=== PATIENT | male | born 1985 | race Caucasian/White ===

== ENCOUNTER 2024-10-14 00:05 | Emergency (ER) | payer OTHER, SELFPAY ==
[2024-10-14 00:08] VITALS: BP 142/89
--- NOTE | 2024-10-14 00:49 | ED.GENMED ---
History of Present Illness
General
Chief Complaint: Fall
Source: patient, spouse and previous radiology exam (Fracture base of fifth metatarsal right foot May 2010. Right fourth metacarpal fracture 2012)
Exam Limitations: none
Time Seen by Provider: 10/14/24 00:34
Nursing documentation reviewed up to this point in time: agreed with
History of Present Illness
History of Present Illness:
This is a 39-year-old morbidly obese gentleman with history of hidradenitis suppurativa, bullous pemphigoid who states he intermittently slipped at the top of the steps subsequently sliding/falling down approximately 12 uncarpeted steps at home
injuring his right shoulder, right hip, right foot. He denies head injury nor loss of consciousness. Fall occurred around 11:30 PM. He has been ambulatory since fall and arrives with his via private automobile.
He complains of significant pain right shoulder with inability to move his shoulder related to pain. He denies headache, denies neck or back pain. He also notes mild right hip pain as well as mild to moderate pain right plantar lateral foot.
He admits to mild numbness to his right hand.
He notes mild nausea but has had no vomiting. No chest pain no cough no shortness of breath, no abdominal pain no back pain.
He has not taken anything for discomfort. He takes no anticoagulants.
Past History
Past History
ED Past Medical History: Other (Hidradenitis suppurativa, bullous pemphigoid) and Other (Obesity, obstructive sleep apnea)
ED Past Surgical History: Other (Bilateral axillary dissection and skin grafts for hidradenitis suppurativa)
Social History
Tobacco: Non-smoker
Drug: Marijuana (Medical marijuana)
Personal: Single
Living: with family
Employment: Employed
Family History
Family History: Other (Noncontributory)
Phy Exam
Physical Exam
Physical Exam:
TRAUMA EXAM:
VITAL SIGNS: Vital signs reviewed, cooperative
DISTRESS: Appears in mild distress related to pain. Cooperative. Sitting upright on edge of stretcher.
EYES: Pupils reactive, no orbital trauma
NOSE: No deformity or epistaxis
FACE AND SCALP: No scalp or facial trauma, external canals no blood
NECK: Supple nontender, full range of motion without difficulty nor pain.
BACK: Back nontender, pelvis stable to compression. No contusions nor abrasions noted.
RESPIRATORY: No distress, breath sounds normal, no tender chest wall
CARDIAC: No murmur, pulses equal and strong
ABDOMEN: Rotund, soft nontender bowel sounds normal
SKIN: Diffuse skin pustules to the face. Extensive axillary scarring/skin grafts bilaterally.
EXTREMITIES: Right shoulder/humeral head is mildly displaced anteriorly and inferiorly with moderate local tenderness palpation. Markedly restricted range of motion of shoulder related to pain. There is no crepitus nor ecchymosis. There is no
tenderness to the upper arm/elbow/forearm nor hand. Mild tenderness right lateral anterior hip with full range of motion without difficulty.
Mild to moderate tenderness right lateral proximal foot, mid aspect of the plantar foot. No ankle nor heel tenderness. Full digit and ankle range of motion without difficulty.
NEUROLOGICAL: Alert, oriented, no motor deficits. Gait is steady.
PSYCH: Mood affect normal
Course
Orders/Labs/Results
Orders:
Orders
10/14/24 00:46
0.9% Sodium Chloride 1000 ml [Nss] 1,000 ml IV BOLUS
HYDROmorphone [Dilaudid] 1 mg IV NOW STA
Ondansetron Injectable [Zofran] 4 mg IV NOW STA
Foot, Right 3 View [CR Foot - Right Min 3 Views] Urgent
Comment:
Reason For Exam: fall down steps, right lateral/plantar foot pain
Hip, Right 2-3 Views [CR Hip - RT w/wo Pel 2-3 Vw*] Urgent
Comment:
Reason For Exam: fall down steps, right hip pain
Include a pelvis x-ray?: Yes
Shoulder, Right, Trauma [CR Shoulder, Trauma - Right] Urgent
Comment:
Reason For Exam: fall down steps, right shoulder pain
10/14/24 01:57
Shoulder Immobilizer Right- Tx ONCE
10/14/24 02:05
Ice Pack-Treatment DIRECTED
Location: right shoulder
Ketorolac [Toradol] 30 mg IV NOW STA
Vital Signs
Initial and Last Documented VS:
Initial Vital Signs
Temp Pulse Resp BP Pulse Ox
98.0 F 91 20 142/89 100
10/14/24 00:08 10/14/24 00:08 10/14/24 00:08 10/14/24 00:08 10/14/24 00:08
Last Documented Vital Signs
Temp Pulse Resp BP Pulse Ox
98.0 F 91 21 114/73 100
10/14/24 00:08 10/14/24 01:00 10/14/24 01:00 10/14/24 00:54 10/14/24 00:08
MDM/Problems Addressed
Differential Diagnosis Includes:
Concern for right shoulder dislocation versus fracture. Concern for right foot fracture, other consideration is occult right hip/right pelvic fracture.
Nothing in history to suggest syncope.
Mild paresthesia of right hand otherwise no focal neurodeficits.
Will medicate for pain and nausea, will plan for x-ray of right shoulder, hip, foot.
*Radiology
Radiology exam reviewed: preliminary read by ED provider (X-rays show mildly comminuted nondisplaced fracture of right humeral head without dislocation. Right hip and right foot x-ray are unremarkable.)
*Pulse Oximetry
Patient hypoxic: no
*Crester Interpretation
Rate: normal
Interpretation: normal
Rhythm: sinus
*Critical Care Note
Total Time (30-74mins, 75-104mins- exclusive of procedures): Not Applicable
Update Note
Update Note:
02:20
Patient is much more comfortable after IV pain medication.
Marked improvement in right shoulder pain and now notes no further paresthesia of the hand. Distal sensation, strength, capillary refill intact with bounding equal peripheral pulses.
X-ray shows nondisplaced fracture of right humeral head without dislocation. Right hip/pelvis and right foot x-ray are unremarkable.
Patient will be placed in shoulder immobilizer.
Recommend supportive measures, ice, elevation.
Prescription for Percocet as well as ibuprofen has been provided.
Will refer to orthopedics for follow-up.
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 He has been provided with out of work note until October 18.
ED Attending Note
-
Portions of this chart may have been created with voice recognition software.� Occasional wrong word or��sound alike� substitutions may have occurred due to the inherent limitations of voice recognition software.
Discharge Plan
Departure
Patient Disposition: Home (Routine Discharge)
Date of Disposition: 10/14/24
Time of Disposition: 02:25
Patient with high blood pressure during this ER visit?: No
Condition: Good
Discharge Problem:
Fracture of right shoulder, Contusion of foot, right, Contusion of hip, right
Instructions: Shoulder or upper arm fracture
Prescriptions:
New
ibuprofen 800 mg tablet
800 mg PO QIDPRN PRN (Reason: pain, fever) Qty: 30 0RF
oxycodone-acetaminophen [Percocet] 5-325 mg Tablet
1 tab PO Q6HPRN PRN (Reason: pain) Qty: 12 0RF
No Action
lamotrigine
10 mg PO DAILY
escitalopram oxalate 10 mg Tablet
10 mg PO DAILY
Referrals:
Sidney Jackson MD [Active] - Call in 1-3 days for appt
John Funk MD [Family Provider] - Call in 1-3 days for appt
Stand Alone Forms: Return to Work
Interventions
Interventions:
*Risk Screen - Suicide Last Done: 10/14/24 00:08
*General Assessment Last Done: 10/14/24 00:35
*Neglect/Abuse Screening Last Done: 10/14/24 00:35
*ED- Fall Risk Assessment Last Done: 10/14/24 00:35
*ED COVID-19 Vaccine History Last Done: 10/14/24 00:35
ED-Musculoskeletal Assessment Last Done: 10/14/24 00:35
ED- Neurological Assessment Last Done: 10/14/24 00:35
ED-Skin Assessment Last Done: 10/14/24 00:35
Discharge Date and Time
Print Language: [place]
[2024-10-14] MEDS: ZOFRAN 4 MG IV (00:50)
[2024-10-14] MEDS: DILAUDID 1 MG IV (00:50)
[2024-10-14] MEDS: NSS 1000 IV (00:50)
[2024-10-14 00:52] VITALS: BMI 44.4
[2024-10-14 00:54] VITALS: BP 114/73
[2024-10-14 01:00] VITALS: BP 111/69
[2024-10-14] MEDS: TORADOL 30 MG IV (02:14)
== END 2024-10-14 02:49 | disposition home or self-care (01) ==
LOC: EMR 00:05
PROVIDERS: EMERGENCY PHYSICIAN Emergency Medicine; FAMILY PHYSICIAN Family Medicine
DX: S42.91XA Fracture of right shoulder girdle, part unspecified, initial encounter for closed fracture (principal); S90.31XA Contusion of right foot, initial encounter; S70.01XA Contusion of right hip, initial encounter; W10.9XXA Fall (on) (from) unspecified stairs and steps, initial encounter; Y92.009 Unspecified place in unspecified non-institutional (private) residence as the place of occurrence of the external cause; L12.0 Bullous pemphigoid; E66.01 Morbid (severe) obesity due to excess calories; G47.33 Obstructive sleep apnea (adult) (pediatric)
CPT/HCPCS: 99283; 96374; 96375; 96361; 73030; 73502; 73630